=== PATIENT | female | born 1990 | race Caucasian/White ===

== ENCOUNTER 2016-08-18 23:54 | Emergency (ER) | payer BC ==
[~2016-08-18] VITALS: Ht 167.6 cm; Wt 108.1 kg
[~2016-08-18 23:54] MED LIST: ACET-62 PO; AMOX500C2 PO; GUAI-52 PO; IBUP200C62 PO; NO ROUTINE MEDS
--- OUTSIDE RECORDS SUMMARY | 2016-08-18 23:59 | XMS REPORT ---
Author Author Aminata Bunn [facility] eClinicalWorks Address Unknown Phone Unavailable Care Team Providers Care Silo Tender Name Role Phone Aminata Bunn CP Unavailable Allergies No Known Allergies Problems Problem Type Condition Code Onset Dates Condition Status Problem Low back pain 724.2 Active Medications No Known Medications Results No Known Results Summary Purpose eClinicalWorks Submission
--- OUTSIDE RECORDS SUMMARY | 2016-08-18 23:59 | XMS REPORT | Referral Summary ---
Author Organization Unknown Address Unknown Phone Unavailable Care Team Providers Care Warp Yarn Sorter Name Role Phone Chu Velasco Primary Care Physician [phone] Encounter VC Date(s): 09/28/14 - 09/28/14 [facility], Jameel, Family [address] [place] [address] Discharge Diagnosis: COUGH Discharge Diagnosis: Asthma Discharge Diagnosis: Bronchitis Discharge Diagnosis: Irregular periods Discharge Disposition: Home or Self Care Attending Physician: Abena Williamson APRN Admitting Physician: Abena Williamson APRN Vital Signs Most recent to 1 oldest [Reference Range]: Temperature Tympanic 36.6 degC [36.6-38.1 degC] (09/28/14 3:17 PM) Peripheral Pulse 93 bpm Rate [60-100 bpm] (09/28/14 3:17 PM) Blood Pressure 112/60 mmHg [90-140/60-90 mmHg] (09/28/14 3:17 PM) Most recent to 1 oldest [Reference Range]: SpO2 97 % (09/28/14 3:17 PM) Problem List Condition Effective Dates Status Health Status Informant Acne(Confirmed) Active Allergic Active rhinitis(Confirmed) Asthma(Confirmed) Active Hay fever(Confirmed) Active Heart Active murmur(Confirmed) Migraines(Confirmed) Active Obesity(Confirmed) Active patient Sinus Active infections(Confirmed ) Allergies, Adverse Reactions, Alerts Substance Reaction Severity Status diphenhydrAMINE fever hives Active Medications albuterol CFC free 90 mcg/inh inhalation aerosol 2 puffs, Inhalation, q4hr, as needed for wheezing, 0 Refill(s) Start Date: 09/07/14 Status: Ordered Desogen tabs, Oral, Daily, [facility] 0 Refill(s) Special Instructions: [facility]. Start Date: 07/02/14 Status: Ordered Results Hematology Most recent to 1 oldest [Reference Range]: WBC [5.0-10.0 K/uL] 7.3 K/uL (09/28/14 2:58 PM) RBC [3.70-5.20 M/uL] 4.66 M/uL (09/28/14 2:58 PM) Hgb [12.0-16.0 13.9 gm/dL gm/dL] (09/28/14 2:58 PM) Hct [37.0-47.0 %] 40.0 % (09/28/14 2:58 PM) MCV [80.0-96.0 fL] 85.8 fL (09/28/14 2:58 PM) MCH [26.0-34.0 pg] 29.8 pg (09/28/14 2:58 PM) MCHC [32.0-36.0 34.8 gm/dL gm/dL] (09/28/14 2:58 PM) RDW [0.0-14.5 %] 13.1 % (09/28/14 2:58 PM) Platelet [150-400 226 K/uL K/uL] (09/28/14 2:58 PM) MPV [8.8-14.8 fL] 11.3 fL (09/28/14 2:58 PM) Neutrophils [50-70 58 % %] (09/28/14 2:58 PM) Lymphocytes [20-40 33 % %] (09/28/14 2:58 PM) Monocytes [4-8 %] 7 % (09/28/14 2:58 PM) Eosinophils [0-6 %] 1 % (09/28/14 2:58 PM) Basophils [0-2 %] 0 % (09/28/14 2:58 PM) Neutro Absolute 4.24 K/uL [2.50-7.00 K/uL] (09/28/14 2:58 PM) Lymph Absolute 2.43 K/uL [1.00-4.00 K/uL] (09/28/14 2:58 PM) Caroline Absolute 0.49 K/uL [0.20-0.80 K/uL] (09/28/14 2:58 PM) Eos Absolute 0.10 K/uL [0.00-0.60 K/uL] (09/28/14 2:58 PM) Baso Absolute 0.02 K/uL [0.00-0.30 K/uL] (09/28/14 2:58 PM) Immunizations Vaccine Date Refusal Reason diphtheria/pertussis, acel/tetanus ped 03/04/93 diphtheria/pertussis, acel/tetanus ped 05/07/92 diphtheria/pertussis, acel/tetanus ped 02/25/92 diphtheria/pertussis, acel/tetanus ped 91 haemophilus b conjugate (HbOC) vaccine 03/04/93 haemophilus b conjugate (HbOC) vaccine 05/07/92 haemophilus b conjugate (HbOC) vaccine 03/02/92 haemophilus b conjugate (HbOC) vaccine 02/25/92 hepatitis A pediatric vaccine 08/17/09 hepatitis A pediatric vaccine 08/26/07 hepatitis B pediatric vaccine 03/04/93 human papillomavirus vaccine 10/15/08 human papillomavirus vaccine 03/30/08 human papillomavirus vaccine 01/27/08 measles/mumps/rubella virus vaccine 03/04/93 meningococcal conjugate vaccine 08/17/06 poliovirus vaccine, inactivated 03/04/93 poliovirus vaccine, inactivated 02/25/92 poliovirus vaccine, inactivated 91 tetanus/diphtheria/pertussis, acel(Tdap) 08/17/06 varicella virus vaccine 08/26/07 Procedures Procedure Date Related Diagnosis Body Site Myringotomy Social History Social History Type Response Smoking Status Current every day smoker; Type: Cigarettes; Tobacco use per day: Pack Assessment and Plan Extracted from: Title: Ambulatory Patient Education Author: Abena Williamson APRN Date : 09/28/14 Family Medicine Asthma, Adult Asthma is a condition of the lungs in which the airways tighten and narrow. Asthma can make it hard to breathe. Asthma cannot be cured, but medicine and lifestyle changes can help control it. Asthma may be started (triggered ) by: Animal skin flakes (dander ). Dust. Cockroaches. Pollen. Mold. Smoke. Cleaning products. Hair sprays or aerosol sprays. [place] fumes or strong smells. Cold air, weather changes, and winds. Crying or laughing hard. Stress. Certain medicines or drugs. Foods, such as dried fruit, potato chips, and sparkling grape juice. Infections or conditions (colds, flu). Exercise. Certain medical conditions or diseases. Exercise or tiring activities. HOME CARE Take medicine as told by your doctor. Use a peak flow meter as told by your doctor. A peak flow meter is a tool that measures how well the lungs are working. Record and keep track of the peak flow meter's readings. Understand and use the asthma action plan. An asthma action plan is a written plan for taking care of your asthma and treating your attacks. To help prevent asthma attacks: Do not smoke. Stay away from secondhand smoke. Change your heating and air conditioning filter often. Limit your use of fireplaces and wood stoves. Get rid of pests (such as roaches and mice) and their droppings. Throw away plants if you see mold on them. Clean your floors. Dust regularly. Use cleaning products that do not smell. Have someone vacuum when you are not home. Use a vacuum glove cleaner with a HEPA filter if possible. Replace carpet with wood, tile, or vinyl mikael. Carpet can trap animal skin flakes and dust. Use allergy-proof pillows, mattress covers, and box spring covers. Wash bed sheets and blankets every week in hot water and dry them in a dryer. Use blankets that are made of polyester or cotton. Clean bathrooms and bridger with bleach. If possible, have someone repaint the daley in these rooms with mold-resistant paint. Keep out of the rooms that are being cleaned and painted. Wash hands often. GET HELP IF: You have make a whistling sound when breaking (wheeze ), have shortness of breath, or have a cough even if taking medicine to prevent attacks. The colored mucus you cough up (sputum ) is thicker than usual. The colored mucus you cough up changes from clear or white to yellow, green , wilson, or bloody. You have problems from the medicine you are taking such as: A rash. Itching. Swelling. Trouble breathing. You need reliever medicines more than 23 times a week. Your peak flow measurement is still at 5079% of your personal best after following the action plan for 1 hour. GET HELP RIGHT AWAY IF: You seem to be worse and are not responding to medicine during an asthma attack. You are short of breath even at rest. You get short of breath when doing very little activity. You have trouble eating, drinking, or talking. You have chest pain. You have a fast heartbeat. Your lips or fingernails start to turn blue. You are lightheaded, dizzy, or faint. Your peak flow is less than 50% of your personal best. You have a fever or lasting symptoms for more than 23 days. You have a fever and your symptoms suddenly get worse. MAKE SURE YOU: Understand these instructions. Will watch your condition. Will get help right away if you are not doing well or get worse. Document Released: 11/06/2008 Document Revised: 03/11/2014 Document Reviewed: [facility] Patient Information 2014 [employer] [facility]. No follow up information was provided. Extracted from: Title: Office Visit Note Author: Abena Williamson APRN Date: 09/28/14 Assessment/Plan 1.Bronchitis medrol dose pack-se discussed. smoking cessation. 2.Irregular periods Discussed use of steroid will interfere with menses. cont with desogen. appt with [facility]. Asthma COUGH
--- OUTSIDE RECORDS SUMMARY | 2016-08-18 23:59 | XMS REPORT | Referral Summary ---
Author Author [facility] [place], [facility] Care Organization [facility] Address Unknown Phone Unavailable Care Team Providers Care Production Assembly Operator Name Role Phone No PCP, States Primary Care Physician [phone] Encounter VC Date(s): 01/01/15 - 01/01/15 [facility] [place] [address] [place] [address] Discharge Diagnosis: Acute low back pain Discharge Disposition: 01-Home or Self Care Attending Physician: Jose Acuna MD Admitting Physician: Jose Acuna MD Vital Signs Most recent to 1 oldest [Reference Range]: Temperature Tympanic 37.3 degC [36.6-38.1 degC] (01/01/15 6:49 PM) Peripheral Pulse 103 bpm Rate [60-100 bpm] *HI* (01/01/15 6:49 PM) Respiratory Rate 16 br/min [14-20 br/min] (01/01/15 6:49 PM) Blood Pressure 115/78 mmHg [90-140/60-90 mmHg] (01/01/15 6:49 PM) SpO2 97 % (01/01/15 6:49 PM) Problem List Condition Effective Dates Status Health Status Informant Acne(Confirmed) Active Allergic Active rhinitis(Confirmed) Asthma(Confirmed) Active Hay fever(Confirmed) Active Heart Active murmur(Confirmed) Migraines(Confirmed) Active Obesity(Confirmed) Active patient Sinus Active infections(Confirmed ) Allergies, Adverse Reactions, Alerts Substance Reaction Severity Status diphenhydrAMINE fever hives Active Medications albuterol CFC free 90 mcg/inh inhalation aerosol 2 puffs, Inhalation, q6hr, as needed for wheezing, # 18 g, 0 Refill(s), Pharmacy : [facility] [id number] Start Date: 05/25/15 Status: Ordered albuterol CFC free 90 mcg/inh inhalation aerosol 2 puffs, Inhalation, q4hr, as needed for wheezing, 0 Refill(s) Start Date: 09/07/14 Status: Ordered ibuprofen 0 Refill(s) Start Date: 01/01/15 Status: Ordered Results No data available for this section Immunizations Vaccine Date Refusal Reason diphtheria/pertussis, acel/tetanus [...] Extracted from: Title: Ambulatory Patient Education Author: Jose Acuna MD Date: 01/02 Family Medicine Back Pain, Adult Low back pain is very common. About 1 in 5 people have back pain.The cause of low back pain is rarely dangerous. The pain often gets better over time.About half of people with a sudden onset of back pain feel better in just 2 weeks. About 8 in 10 people feel better by 6 weeks. CAUSES Some common causes of back pain include: Strain of the muscles or ligaments supporting the spine. Wear and tear (degeneration) of the spinal discs. Arthritis. Direct injury to the back. DIAGNOSIS Most of the time, the direct cause of low back pain is not known.However, back pain can be treated effectively even when the exact cause of the pain is unknown.Answering your caregiver's questions about your overall health and symptoms is one of the most accurate ways to make sure the cause of your pain is not dangerous. If your caregiver needs more information, he or she may order lab work or imaging tests (X-rays or MRIs).However, even if imaging tests show changes in your back, this usually does not require surgery. HOME CARE INSTRUCTIONS For many people, back pain returns.Since low back pain is rarely dangerous, it is often a condition that people can learn to manageon their own. Remain active. It is stressful on the back to sit or emergency medicine one place. Do not sit, drive, or emergency medicine one place for more than 30 minutes at a time. Take short walks on level surfaces as soon as pain allows.Try to increase the length of time you walk each day. Do not stay in bed.Resting more than 1 or 2 days can delay your recovery. Do not avoid exercise or work.Your body is made to move.It is not dangerous to be active, even though your back may hurt.Your back will likely heal faster if you return to being active before your pain is gone. Pay attention to your body when you bend and lift. Many people have less discomfortwhen lifting if they bend their knees, keep the load close to their bodies,and avoid twisting. Often, the most comfortable positions are those that put less stress on your recovering back. Find a comfortable position to sleep. Use a firm mattress and lie on your side with your knees slightly bent. If you lie on your back, put a pillow under your knees. Only take udqe-vei-yaazbor or prescription medicines as directed by your caregiver. Pxjs-krt-kapzttt medicines to reduce pain and inflammation are often the most helpful.Your caregiver may prescribe muscle relaxant drugs.These medicines help dull your pain so you can more quickly return to your normal activities and healthy exercise. Put ice on the injured area. Put ice in a plastic bag. Place a towel between your skin and the bag. Leave the ice on for 15-20 minutes, 03-04 times a day for the first 2 to 3 days. After that, ice and heat may be alternated to reduce pain and spasms. Ask your caregiver about trying back exercises and gentle massage. This may be of some benefit. Avoid feeling anxious or stressed.Stress increases muscle tension and can worsen back pain.It is important to recognize when you are anxious or stressed and learn ways to manage it.Exercise is a great option. SEEK MEDICAL CARE IF: You have pain that is not relieved with rest or medicine. You have pain that does not improve in 1 week. You have new symptoms. You are generally not feeling well. SEEK IMMEDIATE MEDICAL CARE IF: You have pain that radiates from your back into your legs. You develop new bowel or bladder control problems. You have unusual weakness or numbness in your arms or legs. You develop nausea or vomiting. You develop abdominal pain. You feel faint. Document Released: 05/21/2006 Document Revised: 11/19/2012 Document Reviewed: [facility] Patient Information 2015 [employer]. This information is not intended to replace advice given to you by your health care provider. Make sure you discuss any questions you have with your health care provider. Follow Up With: Where: When: Angela Velasco Within 5 to 7 days, only if needed Comments: Extracted from: Title: Office Visit Note Author: Jose Acuna MD Date: 01/02/15 Assessment/Plan Acute low back pain She will be placed on meloxicam 15 mg daily 2 was advised to take this with food. She also will be placed on Lidoderm patch. She will follow-up with her PCP as needed next week. Ordered: Orders: lidocaine topical, 1 patches, Topical, Daily, # 5 patches, 0 Refill(s) , Pharmacy: [id number] meloxicam, 15 mg 1 tabs, Oral, Daily, # 15 tabs, 0 Refill(s), Pharmacy: [facility] [id number], 1 tabs Oral Daily,x15 days
--- OUTSIDE RECORDS SUMMARY | 2016-08-18 23:59 | XMS REPORT | Referral Summary ---
Author Author [facility] [place], [facility] Care Organization [facility] Address Unknown Phone Unavailable Care Team Providers Care Board Operator Name Role Phone No PCP, States Primary Care Physician [phone] Encounter VC Date(s): 05/25/15 - 05/25/15 [facility] [place] [address] [place] [address] Discharge Diagnosis: Acute asthma exacerbation Discharge Diagnosis: Tobacco use Discharge Diagnosis: Bronchitis Discharge Disposition: 01-Home or Self Care Attending Physician: Triston Song PA-C Admitting Physician: Triston Song PA-C Vital Signs Most recent to 1 oldest [Reference Range]: Temperature Tympanic 36.6 degC [36.6-38.1 degC] (05/25/15 4:07 PM) Apical Heart Rate 101 bpm [60-100 bpm] *HI* (05/25/15 4:07 PM) Blood Pressure 128/82 mmHg [90-140/60-90 mmHg] (05/25/15 4:07 PM) SpO2 97 % (05/25/15 4:07 PM) Problem List Condition Effective Dates Status [...] # 18 g, 0 Refill(s), Pharmacy : [facility] [id number] Start Date: 05/25/15 Status: Ordered albuterol CFC free 90 mcg/inh inhalation aerosol 2 puffs, Inhalation, q4hr, as needed for wheezing, 0 Refill(s) Start Date: 09/07/14 Status: Ordered ibuprofen 0 Refill(s) Start Date: 01/01/15 Status: Ordered predniSONE 10 mg oral tablet See Instructions, 3 tabs Oral Daily for three days 2 tabs Oral Daily three days 1 tab Oral Daily for three days, # 18 tabs, 0 Refill(s), Pharmacy: [facility] [id number], 3 tabs Oral Daily for three days; 2 tabs Oral Daily three days; 1 tab Oral... Start Date: 05/25/15 Stop Date: 06/02/15 Status: Ordered Results No data available for [...] Pack Assessment and Plan Extracted from: Title: cough chest tightness Author: Triston Song PA-C Date: 05/25/15 Assessment/Plan Acute asthma exacerbation Patient notes she's been using the nebulizer at home but requests an albuterol inhaler for when she's away from home. This was prescribed. As well as a steroid tapering dose. Diagnosis and treatment discussed. Patient advised to follow up with PCP in 2-3 days. Patient stable upon discharge, alert and orientated with no apparent distress, and indicated understanding of discharge instructions. If symptoms worsen at any time, patient will go to the nearest ER for further evaluation. Bronchitis Take antibiotic as directed; . Rest. Practice good hand hygiene. Increase fluids. use suggested nwmm-sok-ajayaao cough and cold medication as needed per handout . Tylenol/Ibuprofen as needed for fever or pain. FU with PCP if not improving, worsening symptoms, or as needed. Questions were answered. Patient verbalized understanding. Patient left in stable condition. Tobacco use Smoking cessation encouraged. Orders: albuterol, 2 puffs, Inhalation, q6hr, as needed for wheezing, # 18 g, 0 Refill(s), Pharmacy: [facility] [id number] predniSONE, See Instructions, 3 tabs Oral Daily for three days 2 tabs Oral Daily three days 1 tab Oral Daily for three days, # 18 tabs, 0 Refill(s), Pharmacy: [facility] [id number], 3 tabs Oral Daily for three days; 2 tabs Oral Daily three days; 1 tab Oral...
--- OUTSIDE RECORDS SUMMARY | 2016-08-18 23:59 | XMS REPORT | Referral Summary ---
Author Author [facility] [place], Care Organization [facility] Address Unknown Phone Unavailable Care Team Providers Care Compact Assembler Name Role Phone No PCP, States Primary Care Physician [phone] Encounter VC Date(s): 05/17/15 - 05/17/15 [facility] [place] [address] [place] [address] Discharge Disposition: 01-Home or Self Care Attending Physician: Triston Song PA-C Admitting Physician: Triston Song PA-C Vital Signs Most recent to 1 oldest [Reference Range]: Temperature Tympanic 36.7 degC [36.6-38.1 degC] (05/17/15 5:59 PM) Peripheral Pulse 87 bpm Rate [60-100 bpm] (05/17/15 5:59 PM) Blood Pressure 122/82 mmHg [90-140/60-90 mmHg] (05/17/15 5:59 PM) Problem List Condition Effective Dates Status [...] 0 Refill(s) Start Date: 01/01/15 Status: Ordered Mobic 15 mg oral tablet 15 mg 1 tabs, Oral, Daily, # 30 tabs, 0 Refill(s), Pharmacy: [facility] [id number], 1 tabs Oral Daily Start Date: 05/17/15 Status: Ordered Results No data available for [...] use per day: Pack Assessment and Plan No data available for this section
--- OUTSIDE RECORDS SUMMARY | 2016-08-18 23:59 | XMS REPORT ---
Author Author Aminata Bunn [facility] eClinicalWorks Address Unknown Phone Unavailable Care Team Providers Care Paver Installer Name Role Phone Aminata Bunn CP Unavailable Allergies No Known Allergies Problems Problem Type Condition Code Onset Dates Condition Status Assessment Unspecified disorder of menstruation and other abnormal bleeding from female genital tract 626.9 Active Problem Low back pain 724.2 Active Medications Medication Code System Code Instructions Start Date End Date Status Dosage Ibuprofen [facility] [address]-75 800 mg Orally every 6 hrs 1 tablet as needed Levora 0.15/30 (28) [facility] [address]-35 0.15-30 MG-MCG Orally Once a day May 05, 2014 1 tablet Naproxen [facility] [address]-65 500 MG Orally every 12 hrs August 24, 2014 Feb 20, 2015 1 tablet as needed Results No Known Results Summary Purpose eClinicalWorks Submission
--- OUTSIDE RECORDS SUMMARY | 2016-08-18 23:59 | XMS REPORT ---
Author Author Aminata Bunn [facility] eClinicalWorks Address Unknown Phone Unavailable Care Team Providers Care Mcat Instructor Name Role Phone Aminata Bunn CP Unavailable Allergies No Known Allergies Problems Problem Type Condition Code Onset Dates Condition Status Problem Low back pain 724.2 Active Medications No Known Medications Results No Known Results Summary Purpose eClinicalWorks Submission
--- OUTSIDE RECORDS SUMMARY | 2016-08-18 23:59 | XMS REPORT | Continuity of Care Document ---
Author Author [facility] Organization [facility] Address Unknown Phone Unavailable Allergies Active Description Code Type Severity Reaction Onset Reported/Identified Relationship to Patient Clinical Status Yes No Known Drug Allergies No Known Drug Allergies Drug Allergy Unknown N/A 04/20/2010 Yes No Known Intolerances No Known Intolerances Drug Allergy Unknown N/A 04/20/2010 Yes No Known Allergies No Known Allergies Drug Allergy Unknown N/A 08/14/2016 Medications Problems Procedures Results Encounters ACCT No. Visit Date/Time Discharge Status Pt. Type Provider Facility Loc./Unit Complaint [id number] 08/02/2013 13:29:00 08/02/2013 23 :59:59 CLS Outpatient
--- OUTSIDE RECORDS SUMMARY | 2016-08-18 23:59 | XMS REPORT ---
Author Author Aminata Bunn Organization [employer]ClinicalWorks Address Unknown Phone Unavailable Care Team Providers Care Golf Cart Attendant Name Role Phone Aminata Bunn CP Unavailable Allergies, Adverse Reactions, Alerts Substance Reaction Event Type Benadryl Info Not Available Drug Allergy Problems Problem Type Condition ICD-9 Code Onset Dates Condition Status Assessment Need for prophylactic vaccination and inoculation, Other viral diseases V04.89 Active Assessment General counseling for initiation of other contraceptive measures V25.02 Active Problem Low back pain 724.2 Active Medications Medication Code System Code Instructions Start Date End Date Status Dosage Ibuprofen [facility] [address]-43 800 mg Orally every 6 hrs Active 1 tablet as needed Tri-Sprintec [facility] [address]-73 0.18/0.215/0.25 MG-35 MCG Orally Once a day Apr 09, 2014 Active 1 tablet Procedures Procedure Coding System Code Date ADMINISTRATION, 1ST IMMUNIZATION CPT-4 84527 Apr 09, 2014 OFFICE VISIT, EST-LOW COMPLEXITY (15 MIN.) CPT-4 91660 Apr 09, 2014 FLU VACCINE NO PRESERV 3 & > CPT-4 10790 Apr 09, 2014 Vital Signs Date/Time: Apr 09, 2014 Height 66 inches Weight 200.8 lbs Temperature 98.4 F Blood Pressure Diastolic 70 mm Hg Blood Pressure Systolic 100 mm Hg Cardiac Monitoring Heart Rate 100 Beats per Minute BMI 32.41 Index Respiratory Rate 16 per Minute Results No Known Results Immunizations Vaccine Administration Date Influenza shot 4 y.o. and older Apr 09, 2014 Summary Purpose eClinicalWorks Submission
--- OUTSIDE RECORDS SUMMARY | 2016-08-18 23:59 | XMS REPORT ---
Author Author Aminata Bunn [facility] eClinicalWorks Address Unknown Phone Unavailable Care Team Providers Care Hide Paster Name Role Phone Aminata Bunn CP Unavailable Allergies No Known Allergies Problems Problem Type Condition ICD-9 Code Onset Dates Condition Status Problem Low back pain 724.2 Active Medications No Known Medications Results No Known Results Summary Purpose eClinicalWorks Submission
--- OUTSIDE RECORDS SUMMARY | 2016-08-18 23:59 | XMS REPORT ---
Author Author Aminata Bunn [facility] [place] eClinicalWorks Address Unknown Phone Unavailable Care Team Providers Care Gang Investigator Name Role Phone Aminata Bunn CP Unavailable Allergies No Known Allergies Problems Problem Type Condition ICD-9 Code Onset Dates Condition Status Problem Low back pain 724.2 Active Medications No Known Medications Results No Known Results Summary Purpose eClinicalWorks Submission
--- OUTSIDE RECORDS SUMMARY | 2016-08-18 23:59 | XMS REPORT | Referral Summary ---
Author Organization Unknown Address Unknown Phone Unavailable Care Team Providers Care Plant Health Care Technician Name Role Phone Chu Velasco Primary Care Physician [phone] Encounter VC Date(s): 07/02/14 - 07/02/14 Via CHATO Anguiano, Jameel, Family [address] [place] [id number] Discharge Diagnosis: Acute UTI Discharge Diagnosis: Dysuria Discharge Disposition: Home or Self Care Attending Physician: Abena Williamson APRN Admitting Physician: Abena Williamson APRN Vital Signs Most recent to 1 oldest [Reference Range]: Temperature Oral 36.9 degC [35.8-37.3 degC] (07/02/14 9:59 AM) Peripheral Pulse 100 bpm Rate [60-100 bpm] (07/02/14 9:59 AM) Blood Pressure 124/70 mmHg [90-140/60-90 mmHg] (07/02/14 9:59 AM) Problem List Condition Effective Dates Status Health Status Informant Acne(Confirmed) Active Allergic Active rhinitis(Confirmed) Asthma(Confirmed) Active Hay fever(Confirmed) Active Heart Active murmur(Confirmed) Migraines(Confirmed) Active Sinus Active infections(Confirmed ) Allergies, Adverse Reactions, Alerts Substance Reaction Severity Status diphenhydrAMINE fever hives Active Medications CeleXA 20 mg oral tablet 1 tabs, Oral, Daily, # 30 tabs, 0 Refill(s), Pharmacy: [facility] #[id number] , 1 tabs Oral Daily Start Date: 01/15/14 Status: Ordered Cipro 500 mg oral tablet 1 tabs, Oral, q12hr, X 7 days, # 14 tabs, 0 Refill(s), Pharmacy: [facility] #[id number], 1 tabs Oral q12hr,x7 days Start Date: 07/02/14 Stop Date: 07/09/14 Status: Ordered Desogen tabs, Oral, Daily, [facility] 0 Refill(s) Special Instructions: [facility]. Start Date: 07/02/14 Status: Ordered Results Urinalysis Most recent to 1 oldest [Reference Range]: UA Color Yellow (07/02/14 9:50 AM) UA Appear Cloudy *ABN* (07/02/14 9:50 AM) UA pH [5.0-8.0] 6.0 (07/02/14 9:50 AM) UA Leuk Est Pos 2+ [Negative] *ABN* (07/02/14 9:50 AM) UA Nitrite Positive [Negative] *ABN* (07/02/14 9:50 AM) UA Protein Pos 2+ [Negative] *ABN* (07/02/14 9:50 AM) UA Glucose Negative [Negative] (07/02/14 9:50 AM) UA Ketones Negative [Negative] (07/02/14 9:50 AM) UA Urobilinogen 0.2 mg/dL (07/02/14 9:50 AM) UA Bili [Negative] Negative (07/02/14 9:50 AM) UA Blood Pos 2+ *ABN* (07/02/14 9:50 AM) UA Spec Grav 1.020 [1.003-1.030] (07/02/14 9:50 AM) Type Clean Catch (07/02/14 9:50 AM) UA WBC [0-4 /HPF] >50 /HPF (07/02/14 9:50 AM) UA RBC [0-2] 20-50 *ABN* (07/02/14 9:50 AM) Epithelial Cells 2-5 (07/02/14 9:50 AM) UA Bacteria Moderate *ABN* (07/02/14 9:50 AM) UA Mucous Present (07/02/14 9:50 AM) Immunizations Vaccine Date Refusal Reason diphtheria/pertussis, acel/tetanus [...] Education Author: Abena Williamson APRN Date : 07/02/14 Family Medicine Urinary Tract Infection A urinary tract infection (UTI) can occur any place along the urinary tract. The tract includes the kidneys, ureters, bladder, and urethra. A type of germ called bacteria often causes a UTI. UTIs are often helped with antibiotic medicine. HOME CARE If given, take antibiotics as told by your doctor. Finish them even if you start to feel better. Drink enough fluids to keep your pee (urine ) clear or pale yellow. Avoid tea, drinks with caffeine, and bubbly (carbonated ) drinks. Pee often. Avoid holding your pee in for a long time. Pee before and after having sex (intercourse ). Wipe from front to back after you poop (bowel movement ) if you are a woman. Use each tissue only once. GET HELP RIGHT AWAY IF: You have back pain. You have lower belly (abdominal ) pain. You have chills. You feel sick to your stomach (nauseous ). You throw up (vomit ). Your burning or discomfort with peeing does not go away. You have a fever. Your symptoms are not better in 3 days. MAKE SURE YOU: Understand these instructions. Will watch your condition. Will get help right away if you are not doing well or get worse. Document Released: 11/06/2008 Document Revised: 02/12/2013 Document Reviewed: Exit[employer] Patient Information 2013 [email or web address]. No follow up information was provided. Extracted from: Title: Office Visit Note Author: Abena Williamson APRN Date: 07/02/14 Assessment/Plan Acute UTI cipro. push fluids. avoid alcohol or caffeine. Dysuria Orders: ciprofloxacin, 1 tabs, Oral, q12hr, X 7 days, # 14 tabs, 0 Refill(s), Pharmacy: [facility] #[id number], 1 tabs Oral q12hr,x7 days Urine Culture
--- OUTSIDE RECORDS SUMMARY | 2016-08-18 23:59 | XMS REPORT ---
Author Author Aminata Bunn [facility] eClinicalWorks Address Unknown Phone Unavailable Care Team Providers Care Remote Pilot Operator Name Role Phone Aminata Bunn CP Unavailable Allergies No Known Allergies Problems Problem Type Condition Code Onset Dates Condition Status Assessment Other abnormal blood chemistry 790.6 Active Problem Low back pain 724.2 Active Medications Medication Code System Code Instructions Start Date End Date Status Dosage Levora 0.15/30 (28) [facility] [address]-89 0.15-30 MG-MCG Orally Once a day May 05, 2014 1 tablet Naproxen [facility] [address]-40 500 MG Orally every 12 hrs August 24, 2014 Feb 20, 2015 1 tablet as needed Ibuprofen [facility] [address]-90 800 mg Orally every 6 hrs 1 tablet as needed Procedures Procedure Coding System Code Date [facility] CPT-4 58824 September 16, 2014 Results No Known Results Summary Purpose eClinicalWorks Submission
--- OUTSIDE RECORDS SUMMARY | 2016-08-18 23:59 | XMS REPORT ---
Author Author Aminata Bunn [facility] eClinicalWorks Address Unknown Phone Unavailable Care Team Providers Care Bi Developer Name Role Phone Aminata Bunn CP Unavailable Allergies, Adverse Reactions, Alerts Substance Reaction Event Type Benadryl Info Not Available Drug Allergy Problems Problem Type Condition Code Onset Dates Condition Status Assessment Carpal tunnel syndrome of right wrist G56.01 Active Assessment Arthralgia, unspecified joint M25.50 Active Problem Low back pain 724.2 Active Assessment Allergic rhinitis, unspecified allergic rhinitis trigger, unspecified rhinitis seasonality J30.9 Active Medications Medication Code System Code Instructions Start Date End Date Status Dosage Ibuprofen NDC [address]-82 800 mg Orally every 6 hrs 1 tablet as needed Naproxen & Dietary Manage Prod NDC 0 250 MG Orally not defined Procedures Procedure Coding System Code Date OFFICE VISIT, EST-LOW COMPLEXITY (15 MIN.) CPT-4 40301 Feb 01, 2016 Vital Signs Date/Time: Feb 01, 2016 Temperature 99.0 F Height 66 in Weight 223.12 lbs Blood Pressure Diastolic 64 mm Hg Blood Pressure Systolic 114 mm Hg Cardiac Monitoring Heart Rate 91 /min BMI 36.01 Index Oximetry 98 % Results No Known Results Summary Purpose eClinicalWorks Submission
--- OUTSIDE RECORDS SUMMARY | 2016-08-18 23:59 | XMS REPORT ---
Author Author Aminata Bunn [facility] eClinicalWorks Address Unknown Phone Unavailable Care Team Providers Care Protective Signal Repairer Name Role Phone Aminata Bunn CP Unavailable [...] Start Date End Date Status Dosage Ibuprofen [facility] [address]-96 800 mg Orally every 6 hrs 1 tablet as needed Provera [facility] [address]-79 10 MG Orally Once a day August 24, 2014August [address] [facility] [address]-09 500 MG Orally every 12 hrs August 24, 2014 Feb 20, 2015 1 tablet as needed Levora 0.15/30 (28) [facility] [address]-71 0.15-30 MG-MCG Orally Once a day May 05, 2014 1 tablet Procedures Procedure Coding System Code Date COMPLETE CBC W/AUTO DIFF WBC CPT-4 88632 August 24, 2014 COMPREHENSIVE METABOLIC PANEL CPT-4 23344 August 24, 2014 HEMOGLOBIN A1C, IN HOUSE CPT-4 74292 August 24, 2014 OFFICE VISIT, EST-LOW COMPLEXITY (15 MIN.) CPT-4 59726 August 24, 2014 TSH CPT-4 16971 August 24, 2014 Vital Signs Date/Time: August 24, 2014 Height 66 in Weight 194.4 lbs Temperature 98.8 F Blood Pressure Diastolic 70 mm Hg Blood Pressure Systolic 100 mm Hg Cardiac Monitoring Heart Rate 80 /min BMI 31.37 Index Respiratory Rate 16 /min Results No Known Results Summary Purpose eClinicalWorks Submission
--- OUTSIDE RECORDS SUMMARY | 2016-08-19 | XMS REPORT | Continuity of Care Document ---
Author Author Xin Rae RN Ambulatory Address [facility] [place] [address] Phone Unavailable Care Team Providers Care Child'S Nurse Name Role Phone Annika Gambinosteven VASQUEZ Unavailable Payers Payer name Insurance type Covered republican ID Authorization(s) Unknown Problems Condition Effective Dates (start - stop) Clinical Status Unspecified disorder of the teeth and supporting s - *Acute state, incidental - *Routine Acute bacterial tonsillitis - *Chronic Tooth pain - *Acute Candidiasis of vulva and vagina - *Acute Sinusitis, Acute - *Chronic Acute paronychia of toe - *Acute MIGRNE UNSP WO NTRC MGRN - CHRONIC SINUSITIS NOS - ALLERGIC RHINITIS NOS - ASTHMA NOS - ACNE NEC - CARDIAC MURMURS NEC - URI, acute - *Acute Syncope - *Acute Family History Family Member Diagnosis Age At Onset Status Unknown Social History Social History Element Description Quantity Unknown Allergies, Adverse Reactions, Alerts Substance Reaction Severity Status DIPHENHYDRAMINE HCL fever & hives Unknown Medications Medication Instructions Dosage Effective Dates (start - stop) Status acetaminophen 500 mg tablet take 2 Tablet (1000MG) by oral route every 6 hours as needed 1000 MG - Active amoxicillin 875 mg tablet take 1 tablet (875MG) by oral route every 12 hours 875 MG - Active 1-2 po q 4-6 hrs po prn pain. - Active Multivitamins 28 mg iron-800 mcg tablet Take 1 tablet daily - Active Immunizations Vaccine Date Status Comments Unknown Results Test Name Date and Time Measure Units Reference Range Abnormal Flag Comments Unknown Vital Signs Date / Time: Height Weight Pulse Rate Blood Pressure Temperature /13:32:00 67.00 in 190.00 lbs 98 /min 112/80 mm[Hg] 98.0 F Procedures Procedure Date Unknown Encounters Encounter Location Date Patient Visit [facility]note 3] Patient Visit [facility]note 3[facility] Patient Visit [facility] Patient Visit [facility] Patient Visit [facility][note 3] Patient Visit Conversion Patient Visit [facility] Advance Directives Directive Effective Date Unknown
[2016-08-19 00:04] VITALS: BP 120/78; PULSE 90; RESP 17; TEMP 98.2; O2SAT 98; Ht 167.6 cm; Wt 108.1 kg
--- OUTSIDE RECORDS SUMMARY | 2016-08-19 00:11 | XMS REPORT | Continuity of Care Document ---
Author Author [facility] Organization [facility] Address Unknown Phone Unavailable Allergies Active Description [...] Status Pt. Type Provider Facility Loc./Unit Complaint [id number] 08/02/2013 13:29:00 08/02/2013 23 :59:59 CLS Outpatient
[2016-08-19] MEDS ORDERED: ACETAMINOPHEN 500 MG TABLET PO ONE (00:15)
--- NOTE | 2016-08-19 00:33 | ERPDOC ---
Departure Disposition Decision Date: Aug 19, 2016 Disposition Decision Time: 00:33 Disposition: 01 DISCHARGED HOME, SELF-CARE Impression Impression Impression: Primary Impression: Ankle sprain Encounter type: initial encounter Involved ligament of ankle: calcaneofibular ligament Laterality: left Qualified Codes: S93.412A - Sprain of calcaneofibular ligament of left ankle, initial encounter Severity: Moderate Condition: Improved Seen By: Physician only Referrals: KHOI GREEN MD (PCP) JOHANNY CERVANTES APRN (Family) Patient Instructions: Ankle Sprain (ED) Problems/Meds/Labs Reviewed?: Yes Medications reviewed and manag: Yes Additional Instructions: Ice and elevate the ankle when not walking Wear air splint at all times when walking or doing activities for the next 2 weeks Follow-up next week with the clinic of your choice, Continue using ibuprofen 600 mg 4 times daily, and/or Tylenol 1000 mg 4 times daily for baseline pain control May use tramadol one tablet up to 4 times daily as needed for severe pain Follow up care ordered?: Yes Mental Status: Alert HPI General Chief Complaint: Lower Extremity Pain Stated Complaint: L FOOT PAIN Time Seen by Provider: 23:59 Source: patient Exam Limitations: no limitations HPI Foot/Ankle Initial Comments She presents with posterior left ankle pain for the past 4 months after rolling her ankle while moving furniture. Patient is uncertain whether the ankle was actually hit with the cat she was moving or whether she just rolled. Patient has been working, and comes in tonight because she is having increasing pain. Patient has not seen her primary physician at [facility] because she was due to multiple missed visits with her children. Patient has been using Tylenol and Motrin without relief. Occurred At: home Severity: moderate Location: left: ankle 1 - Pain, nontender 2 - Pain, nontender Allergies: Coded Allergies: No Known Allergies (Unverified , 08/19/16) Past History Past Medical History ENMT: dental problems Respiratory: asthma Neurological: migraines Surgical History Reproductive/: tubal ligation Family History Family PMH: FOUND: diabetes, hypertension Vaccines Hx Influenza Vaccination: Yes (2013) Hx Pneumococcal Vaccination: No Social History # of Packs/Tins per Day: 0.5 # of Years: 12 Sexuality: male partner Review of Systems Constitutional Constitutional: DENIES: appetite decrease, appetite increase, chills, dizziness , fever, weakness ENMT Ears: DENIES: pain Hearing: DENIES: hearing loss, tinnitus Balance: DENIES: vertigo Mouth/Throat: DENIES: change in swallowing, change in voice, hoarsness, painful swallowing, sore throat Cardiovascular Cardiac: DENIES: chest pain, dyspnea on exertion Rhythm/Rate: DENIES: irregular beat, palpitations, tachycardia Vascular: DENIES: pedal edema Pulmonary Respiratory: DENIES: cough, dyspnea, pleuritic chest pain GI Upper Abdomen: DENIES: dysphagia, heartburn/indigestion, nausea, pain, vomiting Lower Abdomen: DENIES: blood in stool, constipation, diarrhea, pain Musculoskeletal General: pain, tenderness, DENIES: atrophy of muscles, cramps, gout, joint pain , joint swelling, spasm, weakness Integumentary Skin: DENIES: rash, sores Neurological General: DENIES: headache, numbness, tingling, vertigo, weakness Exam General General Nourishment: well nourished, well developed, appears stated age, no acute distress General Body Habitus: disheveled Vital Signs: Temperature: 98.2, Source: Oral, Heart Rate: 90, Respiratory Rate : 17, BP: 120/78, Pulse Oximetry: 98 Height (Feet): 5 Height (Inches): 6.00 Fastrak Foot/Ankle Comments Patient has no significant swelling, tenderness, deformity, crepitus, or palpable tenderness. Neurovascularly intact, and ambulates without difficulty Neurologic RN Documented GCS Eye Opening: Verbal: Motor: Total: Progress Results/Orders Orders Procedure Category Date Status Time Ankle Left 3 View RAD 08/19/16 Taken Premade Splint EDM 08/19/16 Transmitted 00:13 Acetaminophen PHA 08/19/16 Complete (Tylenol Extra 00:15 Medications Current ED Medications Acetaminophen (Tylenol Extra Strength) 1,000 mg O ONCE PO ; Start 08/19/16 at 00:15; Stop 08/19/16 at 00:16; Status DC Progress Progress X-ray the ankle is negative for any fracture or dislocation Patient placed in air splint, instructed on its use, and given multiple clinic referrals for primary care. Patient is to continue using [id number] pain medications routinely, and she was given a tramadol pack for acute pain WILLIAM Nix MD Aug 19, 2016 00:33
[2016-08-19] MEDS ORDERED: TRAMADOL 50mg TAB #6 (PrePack) SENT HOME ONE (00:45)
--- NOTE | 2016-08-19 00:45 | NUR ---
DEPARTURE PT COLLECTED BELONGINGS AND AMBULATED INDEPENDENTLY TO EXIT, GAIT STEADY.
--- NOTE | 2016-08-19 11:29 | DI ---
Indication: ITS.REASON: LATERAL ANKLE PAIN AFTER INJURY 4 MONTHS AGO PROCEDURE: ANKLE LEFT 3 VIEW: Encounter: Initial Comparison: None Findings: There is no acute fracture, dislocation or malalignment identified. Tiny 1 mm calcific fragment distal to the tip of the fibula appears corticated and could be due to old trauma or even possibly artifactual. Mild lateral soft tissue swelling. Impression: No acute osseous abnormality. .
== END 2016-08-19 00:45 | disposition home or self-care (01) ==
LOC: ED 23:54
DX: S93.412A Sprain of calcaneofibular ligament of left ankle, initial encounter (principal); X58.XXXA Exposure to other specified factors, initial encounter; Y93.89 Activity, other specified; Y92.009 Unspecified place in unspecified non-institutional (private) residence as the place of occurrence of the external cause; Y99.8 Other external cause status

== ENCOUNTER 2016-09-14 21:16 | Emergency (ER) | payer BC ==
[~2016-09-14 21:16] MED LIST changes: -AMOX500C2 PO; -GUAI-52 PO
--- OUTSIDE RECORDS SUMMARY | 2016-09-14 21:21 | XMS REPORT | Continuity of Care Document ---
Author Author [facility] Organization [facility] Address Unknown Phone Unavailable Allergies Active [...] Status Pt. Type Provider Facility Loc./Unit Complaint [id number] 08/02/2013 13:29:00 08/02/2013 23 :59:59 CLS Outpatient
--- NOTE | 2016-09-14 21:32 | NUR ---
[facility] REGISTRATION STAFF NOTIFIES THIS RN THAT PT WANTS TO LEAVE BEFORE TRIAGE ASSESSMENT. PT STATES "I'M GOING TO GO TO [place]. I'VE BEEN FEELING LIKE CRAP ALL DAY, AND I'M NOT GOING TO WAIT." PT A&O, RESPIRATIONS EVEN AND UNLABORED, SKIN PINK. Addendum: 09/14/16 at 2146 by RAJ RISKS OF LEAVING WITHOUT BEING EVALUATED REVIEWED WITH PT. PT VERBALIZES UNDERSTANDING.
--- OUTSIDE RECORDS SUMMARY | 2016-09-14 22:00 | XMS REPORT | Continuity of Care Document ---
Author Author [facility] Organization [facility] Address Unknown Phone Unavailable Allergies Active [...] Status Pt. Type Provider Facility Loc./Unit Complaint [id number] 08/02/2013 13:29:00 08/02/2013 23 :59:59 CLS Outpatient
== END 2016-09-14 21:32 | disposition left against medical advice (07) ==
LOC: ED 21:16
DX: Z53.21 Procedure and treatment not carried out due to patient leaving prior to being seen by health care provider (principal)